=== PATIENT | male | born 2000 | race African-American/Black ===

== ENCOUNTER 2019-04-13 20:29 | Emergency (ER) | payer OTHER ==
[2019-04-13 20:36] VITALS: BP 96/75; PULSE 63; TEMP 98.8; BMI 24.4
--- NOTE | 2019-04-13 21:31 | PDOC ---
History of Present Illness - General Chief Complaint: Sore Throat Stated Complaint: SORE THROAT Time Seen by Provider: 04/13/19 20:49 - History of Present Illness Initial Comments: 04/13/19 21:29 19-year-old male with upper respiratory symptoms x1 day. Past History - Past Medical History Allergies/Adverse Reactions: Allergies Allergy/AdvReac Type Severity Reaction Status Date / Time No Known Allergies Allergy Verified 11/15/17 21:31 Home Medications: Ambulatory Orders NK [No Known Home Medication] 11/15/17 Asthma: Yes COPD: No - Psycho Social/Smoking Cessation Hx Smoking History: Never smoked Hx Alcohol Use: No Drug/Substance Use Hx: No Substance Use Type: None Review of Systems - Review of Systems Constitutional: No: Fever HEENTM: Yes: Nose Congestion, Throat Pain *Physical Exam - Vital Signs Last Vital Signs Temp Pulse Resp BP Pulse Ox 98.8 F 63 19 96/75 100 04/13/19 20:33 04/13/19 20:33 04/13/19 20:33 04/13/19 20:33 04/13/19 20:33 - Physical Exam 04/13/19 21:29 GENERAL: The patient is awake, alert, and fully oriented, in no acute distress. HEAD: Normal with no signs of trauma. EYES: sclera anicteric, conjunctiva clear. ENT: Ears normal tympanic membranes normal oropharynx clear uvula midline NECK: Normal range of motion LUNGS: Breath sounds equal, clear to auscultation bilaterally. No wheezes, and no crackles. HEART: S1 and S2 without murmur, rub or gallop. ABDOMEN: Soft, nontender, normoactive bowel sounds. No guarding, no rebound. No masses. EXTREMITIES: Normal range of motion, no edema. No clubbing or cyanosis. No cords, erythema, or tenderness. NEUROLOGICAL: Cranial nerves II through XII grossly intact. Normal speech, normal gait. PSYCH: Normal mood, normal affect. SKIN: Warm, Dry, normal turgor, no rashes or lesions noted. Medical Decision Making - Medical Decision Making 04/13/19 21:30 Negative viral swab supportive care follow-up with PCP Discharge - Discharge Information Problems reviewed: Yes Clinical Impression/Diagnosis: Viral upper respiratory illness Condition: Stable Disposition: HOME - Admission No - Follow up/Referral Referrals: Chun Naranjo MD [Staff Physician] - - Patient Discharge Instructions Additional Instructions: Return to the emergency room for further issues. Follow-up with your primary care physician in 2 to 3 days for further evaluation and treatment options. Tylenol Motrin for body aches and pain should you require that medication. Your flu swab and strep swabs today were negative. - Post Discharge Activity
== END 2019-04-13 21:56 | disposition home or self-care (01) ==
LOC: JERFT 20:29
DX: J06.9 Acute upper respiratory infection, unspecified (principal); B97.89 Other viral agents as the cause of diseases classified elsewhere; Z87.09 Personal history of other diseases of the respiratory system
CPT/HCPCS: 87070; 87804; 87880; 99282-25

== ENCOUNTER 2020-02-10 17:59 | Emergency (ER) | payer OTHER ==
[2020-02-10 18:09] VITALS: BMI 27.8
[2020-02-10 21:31] LABS: BASO % 0.3 % (0-2.0); EOS % 2.6 % (0-4.5); HEMOGLOBIN 15.2 GM/dL (11.7-16.9); LYMPH % 41.9 % (8-40); MCH 27.2 pg (25.7-33.7); MCHC 33.1 g/dl (32.0-35.9); MEAN CELL VOLUME 82.1 fl (80-96); MEAN PLT VOLUME 7.2 fl (7.5-11.1); MONO % 8.1 % (3.8-10.2); NEUT % 47.1 % (42.8-82.8); PLATELET COUNT 294 K/MM3 (134-434); RDW 13.6 % (11.9-15.9); WHITE BLOOD COUNT 7.1 K/mm3 (4.0-10.0)
[2020-02-10 21:50] LABS: POTASSIUM 4.2 mmol/L (3.5-5.1)
[2020-02-10 21:52] LABS: BLOOD UREA NITROGEN 13.6 mg/dL (7-18); CALCIUM 9.8 mg/dL (8.5-10.1)
[2020-02-10 21:55] LABS: CREATININE 1.1 mg/dL (0.55-1.3)
[2020-02-10 21:57] LABS: BILIRUBIN,TOTAL 0.4 mg/dL (0.2-1); TOT PROT 8.2 g/dl (6.4-8.2)
[2020-02-10 22:57] VITALS: BP 116/80; PULSE 72; TEMP 98.4
== END 2020-02-10 22:57 | disposition home or self-care (01) ==
LOC: JER 17:59
DX: R07.9 Chest pain, unspecified (principal)
CPT/HCPCS: 36415; 71046-TC-FY; 80053; 82550; 84443; 84484; 85025; 93005; 93010; 99285-25

== ENCOUNTER 2020-05-12 21:26 | Inpatient (IN) | payer OTHER ==
[2020-05-12 21:47] VITALS: BMI 27.1
[2020-05-12] MEDS ORDERED: LIDOCAINE HCL 1%, 10 MG/ML (50 mL VIAL) SQ ONE (22:32)
[2020-05-12] MEDS ORDERED: morphine CARPU-JECT 4 MG/1 ML DISP.SYRIN IVPUSH ONE (22:34)
[2020-05-12] MEDS ORDERED: ONDANSETRON 4 MG/2 ML VIAL IVPUSH ONE (22:34)
[2020-05-12] MEDS ORDERED: LIDOCAINE HCL 1%, 10 MG/ML (20ML VIAL) ONE (22:49)
[2020-05-12] MEDS ORDERED: morphine SULFATE 4 MG/ML VIAL ONE (22:49)
[2020-05-12] MEDS ORDERED: MORPHINE SULFATE 2 MG/ML VIAL ONE (22:50)
[2020-05-12] MEDS ORDERED: ONDANSETRON 4 MG/2 ML VIAL ONE (22:50)
[2020-05-12 23:17] LABS: BASO % 0.2 % (0-2.0); EOS % 0.7 % (0-4.5); HEMATOCRIT 41.7 % (35.4-49); HEMOGLOBIN 13.9 GM/dL (11.7-16.9); LYMPH % 16.5 % (8-40); MCHC 33.4 g/dl (32.0-35.9); MEAN CELL VOLUME 80.8 fl (80-96); MEAN PLT VOLUME 7.1 fl (7.5-11.1); MONO % 7.3 % (3.8-10.2); NEUT % 75.3 % (42.8-82.8); RBC 5.16 M/mm3 (4.00-5.60); RDW 13.7 % (11.9-15.9); WHITE BLOOD COUNT 11.2 K/mm3 (4.0-10.0)
[2020-05-12 23:26] LABS: INR 1.05 (0.83-1.09); PROTHROMBIN TIME (PATIENT) 12.9 SEC (9.7-13.0)
[2020-05-12 23:29] LABS: ACTIVATED PTT 26.4 SECONDS (25.2-36.5)
[2020-05-12 23:36] LABS: ALBUMIN 3.9 g/dl (3.4-5.0); BLOOD UREA NITROGEN 20.7 mg/dL (7-18); CALCIUM 9.5 mg/dL (8.5-10.1)
[2020-05-12 23:39] LABS: CREATININE 1.3 mg/dL (0.55-1.3)
[2020-05-12 23:41] LABS: BILIRUBIN,TOTAL 0.3 mg/dL (0.2-1); TOT PROT 7.4 g/dl (6.4-8.2)
[2020-05-12 23:46] LABS: PLATELET COUNT 279 K/MM3 (134-434); PLATELET ESTIMATE ADEQUATE
[2020-05-13] MEDS ORDERED: ACETAMINOPHEN WITH CODEINE 300MG/30MG TABLET PO ONE (00:29)
[2020-05-13] MEDS ORDERED: ACETAMINOPHEN WITH CODEINE 300MG/30MG TABLET ONE (00:59)
[2020-05-13] MEDS ORDERED: ACETAMINOPHEN 1000 MG/100 ML VIAL (NON FORMULARY) IVPB PRN (04:01)
[2020-05-13] MEDS ORDERED: ALBUTEROL SO4 HFA INHALER IH PRN (05:33)
[2020-05-13] MEDS ORDERED: MORPHINE SULFATE 2 MG/ML VIAL ONE ×2 (06:21→11:05)
[2020-05-13] MEDS: MORPHINE SULFATE 2 MG/ML VIAL IVPUSH PRN ×2 (06:31→11:33)
[2020-05-13 08:09] LABS: BASO % 0.1 % (0-2.0); EOS % 0.2 % (0-4.5); HEMATOCRIT 40.4 % (35.4-49); HEMOGLOBIN 13.6 GM/dL (11.7-16.9); LYMPH % 15.7 % (8-40); MCH 27.2 pg (25.7-33.7); MCHC 33.8 g/dl (32.0-35.9); MEAN CELL VOLUME 80.5 fl (80-96); MEAN PLT VOLUME 7.1 fl (7.5-11.1); MONO % 7.3 % (3.8-10.2); NEUT % 76.7 % (42.8-82.8); PLATELET COUNT 263 K/MM3 (134-434); RBC 5.02 M/mm3 (4.00-5.60); RDW 13.5 % (11.9-15.9); WHITE BLOOD COUNT 9.9 K/mm3 (4.0-10.0)
[2020-05-13 08:16] LABS: INR 1.15 (0.83-1.09); PROTHROMBIN TIME (PATIENT) 13.9 SEC (9.7-13.0)
[2020-05-13 08:18] LABS: ACTIVATED PTT 28.5 SECONDS (25.2-36.5)
[2020-05-13] MEDS ORDERED: ACETAMINOPHEN INJECTION 100 ML IVPB ONE (08:30)
[2020-05-13 08:32] LABS: CALCIUM 9.1 mg/dL (8.5-10.1)
[2020-05-13 08:33] LABS: ALBUMIN 3.9 g/dl (3.4-5.0); MAGNESIUM 2.1 mg/dL (1.8-2.4)
[2020-05-13 08:36] LABS: BILIRUBIN,TOTAL 0.6 mg/dL (0.2-1); CREATININE 1.1 mg/dL (0.55-1.3); TOT PROT 7.3 g/dl (6.4-8.2)
[2020-05-13] MEDS ORDERED: EMTRICITABINE 200MG/TENOFOVIR 300MG PO SCH ×2 (10:00)
[2020-05-13 11:28] VITALS: BP 123/81; PULSE 70; TEMP 99.1
== END 2020-05-13 11:35 | disposition short-term general hospital (02) | DRG 342 ==
LOC: JER 21:26 → JERBED 22:36
PROVIDERS: ADMIT Hospitalist; ATTEND Internal Medicine
PROC: 0SSFXZZ Reposition Right Ankle Joint, External Approach (ICD-10-PCS; principal; 2020-05-12)
PROC: 2W3SX1Z Immobilization of Right Foot using Splint (ICD-10-PCS; 2020-05-12)
DX: S82.851A Displaced trimalleolar fracture of right lower leg, initial encounter for closed fracture (principal); S93.04XA Dislocation of right ankle joint, initial encounter; Z21 Asymptomatic human immunodeficiency virus [HIV] infection status; D72.829 Elevated white blood cell count, unspecified; F17.200 Nicotine dependence, unspecified, uncomplicated; Z95.4 Presence of other heart-valve replacement
CPT/HCPCS: 36415; 73610-TC-RT-FY; 80053; 83735; 85025; 85610; 85730; 86850; 86900; 86901; 93005; 93010; 99285-25; C9803; J0131; U0003

== ENCOUNTER 2021-03-26 14:56 | Emergency (ER) | payer OTHER ==
[2021-03-26 15:20] VITALS: BP 110/71; PULSE 96; TEMP 98; BMI 25.7
== END 2021-03-26 15:56 | disposition home or self-care (01) ==
LOC: JER 14:56
DX: G51.0 Bell's palsy (principal)
CPT/HCPCS: 99283-25